=== PATIENT | male | born 1970 | race Caucasian/White ===

== ENCOUNTER → 2016-09-24 | Outpatient (CLI) | payer MEDICARE ==
[2016-09-24 13:34] LABS: BUN/CREATININE RATIO 17 (0-10)
== END ==
LOC: LAB 12:47
PROVIDERS: Family Medicine
DX: E78.2 Mixed hyperlipidemia (principal); M10.9 Gout, unspecified
CPT/HCPCS: 36415; 80053; 80061; 84550

== ENCOUNTER → 2016-10-15 | Outpatient (CLI) | payer MEDICARE | LOC: KOH-I 11:09 | DX: R10.11 Right upper quadrant pain (principal); K76.0 Fatty (change of) liver, not elsewhere classified | CPT/HCPCS: 76700 ==

== ENCOUNTER → 2020-08-13 | Outpatient (CLI) | payer MEDICARE ==
[2020-08-13 12:01] LABS: HEMOGLOBIN 16.4 gm/dl (14.0-17.5); RED BLOOD COUNT 5.5 M/UL (4.20-5.50); WHITE BLOOD COUNT 9.8 K/UL (4.5-11.0)
[2020-08-13 12:19] LABS: BUN/CREATININE RATIO 17 (0-10)
== END ==
LOC: LAB 10:58
PROVIDERS: Family Medicine
DX: Z12.5 Encounter for screening for malignant neoplasm of prostate (principal); M10.9 Gout, unspecified; E78.2 Mixed hyperlipidemia
CPT/HCPCS: 36415; 80053; 80061; 84550; 85027; G0103